=== PATIENT | male | born 1955 | race Caucasian/White ===

== ENCOUNTER 2019-09-21 06:24 | Outpatient (CLI) | payer BC ==
[~2019-09-21] VITALS: Ht 182 cm; Wt 94.5 kg
[~2019-09-21 06:24] MED LIST: ACHYD1T PO; ASPI-875 PO; ATOR40TA PO; CLN150C PO; CYCL10TA45 PO; KETO-22 PO; LISI1TAB PO; OMEG-12 PO; OMEG1CAP51 PO; PRX20T PO; UBID100C17 PO; UBID400C4 PO
[2019-09-21] MEDS ORDERED: ATOR20TA49 PO (10:55)
[2019-09-21] MEDS ORDERED: ASPI-586 PO (10:55)
[2019-09-21] MEDS ORDERED: OMEP20TA7 PO (10:55)
[2019-09-21] MEDS ORDERED: LISI1TAB8 PO (10:55)
[2019-09-21] MEDS ORDERED: PARO30TA3 PO (10:57)
== END 2019-09-21 10:59 | disposition home or self-care (01) ==
LOC: PREOP 06:24
PROVIDERS: ATTEND Surgery
DX: Z01.818 Encounter for other preprocedural examination (principal)